=== PATIENT | female | born 1940 | race Caucasian/White ===

== ENCOUNTER → 2016-12-22 | Outpatient (CLI) | payer OTHER | LOC: FIMAGING 09:18 | PROVIDERS: ATTEND Family Medicine | DX: Z13.820 Encounter for screening for osteoporosis (principal); M85.80 Other specified disorders of bone density and structure, unspecified site; Z78.0 Asymptomatic menopausal state; E07.9 Disorder of thyroid, unspecified ==

== ENCOUNTER → 2017-01-10 | Outpatient (CLI) | payer OTHER | LOC: FIMAGING 09:01 | DX: Z12.31 Encounter for screening mammogram for malignant neoplasm of breast (principal) | CPT/HCPCS: G0202 ==

== ENCOUNTER → 2017-01-21 | Outpatient (CLI) | payer OTHER | LOC: FIMAGING 14:02 | PROVIDERS: ATTEND Family Medicine | DX: Z12.39 Encounter for other screening for malignant neoplasm of breast (principal); R92.2 Inconclusive mammogram | CPT/HCPCS: 76641; G0206 ==

== ENCOUNTER 2017-03-22 05:41 | Inpatient (IN) | payer OTHER ==
[2017-03-22] MEDS ORDERED: POVIDONE-IODINE 20 ML in SODIUM CL IRRIG SOLUTION 500 ML IRR ONE (06:00)
[2017-03-22] MEDS ORDERED: TRANEXAMIC ACID 1,500 MG in NS 100 ML IV ONE (06:00)
[2017-03-22] MEDS ORDERED: ROPIVACAINE 0.2% 80 MG, EPINEPHrine 0.2 MG, KETOROLAC TROMETHAMINE 30 MG in BAG 0 ML IU ONE (06:00)
[2017-03-22] MEDS ORDERED: DEXAMETHASONE 4 MG/ML VIAL IVP ONE (06:03)
[2017-03-22] MEDS ORDERED: FAMOTIDINE 20 MG TAB PO ONE (06:03)
[2017-03-22] MEDS ORDERED: ACETAMINOPHEN 325 MG TAB PO ONE (06:03)
[2017-03-22] MEDS ORDERED: ceFAZolin 2 GM/DEXTROSE 100 ML IV ONE (06:03)
[2017-03-22] MEDS ORDERED: LIDOCAINE 1% 2 ML INJ ID PRN (06:05)
[2017-03-22] MEDS ORDERED: LR 1,000 ML IV ONE (06:05)
[2017-03-22] MEDS ORDERED: LIDOCAINE 1% 2 ML INJ ONE (06:17)
[2017-03-22] MEDS ORDERED: ceFAZolin 1 GM/5 ML SYR ONE (06:39)
[2017-03-22] MEDS ORDERED: MIDAZOLAM 2 MG/2 ML VIAL IVP ONE (06:53)
--- NOTE | 2017-03-22 06:54 | PDHPUP ---
History & Physical Update H&P update statement: This history and physical update is based on an assessment of the patient which was completed after admission or registration (within 24 hours), but prior to the surgery/procedure. H&P update: H&P reviewed & patient examined, no change in patient's condition since H&P completed
[2017-03-22] MEDS ORDERED: fentaNYL 100 MCG/2 ML INJ ONE (07:11)
[2017-03-22] MEDS ORDERED: PROPOFOL/EMULSION 500 MG/50 ML BOTTLE IV ONE (07:11)
[2017-03-22] MEDS ORDERED: LIDOCAINE 2% 5 ML SDV ONE ×2 (07:12)
[2017-03-22] MEDS ORDERED: epHEDrine SULFATE 10 MG/ML SYR ONE ×3 (07:39→07:54)
[2017-03-22] MEDS ORDERED: PHENYLEPHRINE HCL 100 MCG/ML SYR ONE (07:53)
[2017-03-22] MEDS ORDERED: ONDANSETRON 4 MG/2 ML VIAL IVP PRN ×2 (08:02→08:58)
[2017-03-22] MEDS ORDERED: HYDROCODONE/APAP 5/325 TAB PO PRN (08:02)
[2017-03-22] MEDS ORDERED: OXYCODONE/APAP 5/325 TAB PO PRN (08:02)
[2017-03-22] MEDS ORDERED: D5W LR 500 ML IV PRN (08:02)
[2017-03-22] MEDS ORDERED: NALOXONE HCL 0.4 MG/ML INJ IVP PRN (08:02)
[2017-03-22] MEDS ORDERED: ACETAMINOPHEN 500 MG TAB PO PRN (08:02)
--- NOTE | 2017-03-22 08:02 | PDANEPAE ---
ANE Past Medical History - Cardiovascular History Hx Hypertension: No Hx Arrhythmias: No Hx Chest Pain: No Hx Coronary Artery / Peripheral Vascular Disease: No Hx CHF / Valvular Disease: No Hx Palpitations: No Cardiovascular History Comment: on Lipitor - Pulmonary History Hx COPD: No Hx Asthma/Reactive Airway Disease: No Hx Recent Upper Respiratory Infection: No Hx Oxygen in Use at Home: No Hx Sleep Apnea: No Sleep Apnea Screening Result - Last Documented: Negative - Neurologic History Hx Cerebrovascular Accident: No Hx Seizures: No Hx Dementia: No Neurologic History Comment: occ H/A's-migraines - Endocrine History Hx Diabetes: No Hypothyroid: Yes Hyperthyroid: No Obesity: no Endocrine History Comment: hypothyroid - Renal History Hx Renal Disorders: No - Liver History Hx Hepatic Disorders: No - Neurological & Psychiatric Hx Hx Neurological and Psychiatric Disorders: No - Cancer History Hx Cancer: Yes Cancer History Comment: Moh's surgery-basal skin CA - Congenital Disorder History Hx Congenital Disorders: No - GI History Hx Gastrointestinal Disorders: No - Other Health History Other Health History: OA L hip - Chronic Pain History Chronic Pain: Yes (L hip) - Surgical History Prior Surgeries: appy-child. hysterectomy, vag prolapse. 17 yrs ago,. bilat cataract extraction w/IOL 2015 ANE Review of Systems - Exercise capacity METS (RN): 4 METS ANE Patient History - Allergies Allergies/Adverse Reactions: No Known Allergies Allergy (Verified 03/11/17 10:57) - Home Medications Home Medications: Calcium Carbonate/Vitamin D3 [Calcium 600 + D3 Softgel] 1 each PO DAILY [Last Taken 03/18/17] Cholecalciferol Vit D3 [Vitamin D3 (*)] 4,000 units PO DAILY 03/08/17 [Last Taken 03/18/17] Ibuprofen [Motrin (*)] 400 mg PO DAILY PRN 03/08/17 [Last Taken 03/18/17] Levothyroxine [Synthroid 88 mcg (*)] 88 mcg PO DAILY06 03/08/17 [Last Taken ] Polyvinyl Alcohol/Povidone/Pf [Refresh Classic Eye Drops] 1 each OP DAILY PRN [Last Taken 03/22/17] Simvastatin [Zocor] 20 mg PO DAILY 03/08/17 [Last Taken 03/21/17] - NPO status NPO Since - Liquids (Date): 03/21/17 NPO Since - Liquids (Time): 21:00 NPO Since - Solids (Date): 03/21/17 NPO Since - Solids (Time): 21:00 - Smoking Hx Smoking Status: Never smoked ANE Labs/Vital Signs - Vital Signs Blood Pressure: 136/77 Heart Rate: 67 Respiratory Rate: 18 Height: 165.1 cm Weight: 74.843 kg ANE Physical Exam - Airway Neck exam: FROM Mallampati Score: Class 2 Mouth exam: normal dental/mouth exam - Pulmonary Pulmonary: no respiratory distress, no rales or rhonchi, clear to auscultation - Cardiovascular Cardiovascular: regular rate and rhythym - ASA Status ASA Status: II ANE Anesthesia Plan Anesthesia Plan: MAC, spinal
--- NOTE | 2017-03-22 08:49 | POSTOPPROG ---
Post Op Note Date of Operation: 03/22/17 Surgeon: Tigre Escobar Recovery Operator Helper: Robert Santiago/Oren Anesthesiologist: Juanito York Anesthesia: IV Sedation, Spinal Post-op Diagnosis: Left hip arthritis Procedure: Left total hip arthroplasty Inf/Abcess present in the surg proc area at time of surgery?: No EBL: 100-500
[2017-03-22] MEDS ORDERED: TEMAZEPAM 15 MG CAP PO PRN (08:58)
[2017-03-22] MEDS ORDERED: PROMETHAZINE HCL 25 MG SUPPR PR PRN (08:58)
[2017-03-22] MEDS ORDERED: CYCLOBENZAPRINE 10 MG TAB PO PRN (08:58)
[2017-03-22] MEDS ORDERED: LACTULOSE 20 GM/30 ML UDCUP PO PRN (08:58)
[2017-03-22] MEDS ORDERED: NON-FORMULARY NEW DRUG (Polyvinyl Alcohol/Povidone/Pf [Refresh Classic Eye Drops] 1 EACH) OP PRN (08:58)
[2017-03-22] MEDS ORDERED: traMADol 50 MG TAB PO PRN (08:58)
[2017-03-22] MEDS ORDERED: ONDANSETRON DISINTEGRATING 4 MG TAB PO PRN (08:58)
[2017-03-22] MEDS ORDERED: BISACODYL 10 MG SUPP PR PRN (08:58)
[2017-03-22] MEDS ORDERED: METOCLOPRAMIDE 10 MG/2 ML VIAL IVP PRN (08:58)
[2017-03-22] MEDS ORDERED: PHARMACY PAIN CONSULT 1 EA MISC PRN (08:58)
[2017-03-22] MEDS ORDERED: MAGNESIUM HYDROXIDE 30 ML UDCUP PO PRN (08:58)
[2017-03-22] MEDS ORDERED: POLYETHYLENE GLYCOL 3350 17 GM PKT PO PRN (08:58)
[2017-03-22] MEDS ORDERED: diphenhydrAMINE 25 MG CAP PO PRN (08:58)
[2017-03-22] MEDS ORDERED: NS 500 ML IV PRN (08:58)
[2017-03-22] MEDS ORDERED: DIPHENOXYLATE/ATROPINE LOMOTIL 1 TAB PO PRN (08:58)
[2017-03-22] MEDS ORDERED: PROMETHAZINE HCL 25 MG/ML INJ IVP PRN (08:58)
[2017-03-22] MEDS ORDERED: NON-FORMULARY NEW DRUG (Simvastatin [Zocor] 20 MG) PO SCH (09:00)
[2017-03-22] MEDS ORDERED: CARBOXYMETHYLCELLULOSE 1% 0.4 ML DROPERETTE EACHEYE PRN (09:16)
--- NOTE | 2017-03-22 10:17 | GOP ---
[f rep st] OPERATIVE REPORT DATE OF OPERATION: 03/22/2017 SURGEON: Tigre Escobar MD OIL TANK CAR CLEANER: Robert Santiago and Mark Lott. ANESTHESIA: A combination of Marcaine, spinal, and IV sedation. ANESTHESIOLOGIST: Dr. Juanito York. PREOPERATIVE DIAGNOSIS: Left hip arthritis. POSTOPERATIVE DIAGNOSIS: Left hip arthritis. PROCEDURE PERFORMED: Left total hip arthroplasty, ceramic femoral head on highly cross-linked polye thylene cup liner. FINDINGS: DESCRIPTION OF PROCEDURE: The patient was given 2 g of IV Ancef preoperatively within 60 minutes of surgery. She also received IV tranexamic acid at a dose of 20 mg/kg. She was placed on the operat ing room table and given spinal anesthesia with Marcaine by Dr. York. She was then placed merino pine and given IV sedation. A Ramon catheter was not used. She wore a stocking and SCD on the nono perative leg. She was rolled to the right lateral decubitus position. The position was secured wit h the pegboard table attachment. An axillary roll was used and all pressure points were carefully p added. I was careful to lock her pelvis in a rigid vertical position. Her perineum was isolated wi plastic adhesive drapes. The left hip and left lower extremity were prepped with ChloraPrep. Th ey were draped free using sterile sheets, stockinette, and Ioban plastic drapes. The [facility] rganization time-out was performed to verify the correct surgical side and site and the correct javier ent identity. The [place] time-out was also performed. I made a 5-inch straight oblique posterolateral hip skin incision. Subcutaneous tissues were sharpl y divided, and hemostasis was obtained using electrocautery. Her fascia romy was identified and spl it along the axis of its fibers. I then curved posteriorly and proximally, and split the fascia of gluteus meli and bluntly split the muscle fibers in line with their orientation. A Charnley self -retaining retractor was inserted. Her sciatic nerve was located, partially exposed, and protected throughout the procedure. The external rotators and the posterior hip capsule were divided as separ ate layers at the base of the femoral neck, tagged, and reflected posteriorly. A smooth 8-inch Stei nmann pin was inserted vertically into the ilium superior to the acetabulum. A 1/8-inch drill bit w as inserted vertically into the greater trochanter and parallel to the first pin. The distance betw een the 2 was measured for leg length reference. Her femoral head was dislocated posteriorly. The femoral neck was osteotomized at the appropriate level and inclination. I was careful to preserve a ll the posterior and anterior capsule. The remnant of her damaged labrum was excised. The femur was prepared first. This allowed me to pole peeler the amount of natural femoral neck anteversi on. This, in turn, allowed me to later determine the correct amount of cup anteversion. She had 12 -15 degrees of natural femoral neck anteversion. The canal was open first laterally with a box chis el. I then hand broached sequentially up to a size 5. I was using the Accolade II stem. The size 5 broach was used as a trial stem. I was careful to lateralize adequately. Appropriate retractors were inserted to expose the acetabulum. The acetabulum was reamed sequentially up to 51 mm. I benny cted a 52 mm [place] Tritanium cluster hole hemispherical shell. This was tapped securely into plac e in the proper degree of inclination and anteversion. I used the transverse acetabular ligament an d other acetabular bony landmarks to help me properly orient the cup. For additional fixation, I in serted a single 30 mm screw. I also inserted a screw in metal dome hole plug. I performed a series of trial reductions to determine length and stability. I concluded that the si ze 5 high offset stem with a 0 neck length and a 32 mm head with a flush trial liner gave me the pro per combination of appropriate length and good anterior and posterior stability. The 0 degree or fl [facility] Jian X3 highly cross-linked polyethylene liner was inserted and tapped securely into place. I selected the Accolade II stem with high offset at 127 degrees. This was inserted press-fit and wa s very tight. I did one final trial reduction and confirmed that the 0 neck length with a 32 mm hea d was the proper combination. The Jian Biolox Delta ceramic head with an outside diameter of 32 mm and a neck length of 0 mm was tapped securely onto the clean trunnion. The acetabulum was irriga darin and the hip was reduced one final time. She had excellent anterior and posterior stability. 40 mL of the joint anesthetic cocktail were injected into the capsule, the deep musculature, and the subcutaneous tissues around the skin edges. The joint was thoroughly irrigated one final time with a dilute Betadine solution. Her sciatic nerve was reinspected and looked unharmed. The external r otators and the posterior hip capsule were repaired in separate layers with #2 FiberWire sutures thr ough drill holes in the greater trochanter. The fascia romy was closed first with one bxcblj-ur-mwd ht #2 FiberWire suture followed by a running #2 barbed Ethicon Stratafix PDO suture. The subcutaneo us tissues were closed with a running 0 barbed Ethicon Stratafix Monoderm suture. The skin was clos ed with a running 3-0 barbed Ethicon Stratafix Monoderm subcuticular suture. The skin edges were re approximated and sealed with Dermabond glue. The wound was covered with a strip of Telfa and everyt phillip was held in place with a piece of clear plastic Tegaderm. A long-leg DARIN stocking and SCD were applied to her left lower extremity. She wore a stocking and SCD on the opposite leg during the pr ocedure. An abduction pillow was placed between her knees. She was awakened from anesthesia and ro lled to the supine position on her [facility]. She was taken to the PACU in satisfactory condi tion. There were no recognized intraoperative complications. The estimated blood loss was about 30 0 mL. The sponge and needle count were correct on 2 occasions. I used a [place] Tritanium hemispherical cluster hole acetabular shell with an outside diameter of 5 2 mm. The liner was a [place] X3 flush highly cross-linked liner with an inside diameter of 32 mm. The femoral component was a high offset [place] Accolade II stem in size 5 and press-fit. The femo ral head was a [place] Biolox Delta ceramic head with a 0 neck length and a 32 mm outside diameter. Robert Santiago and Mark Lott acted as surgical assistants. Their assistance was a medical nelli pisano for safe completion of the procedure. /[id number]/MODL
--- NOTE | 2017-03-22 10:22 | POSTANESTH ---
Post Anesthetic Evaluation Cardiovascular Status: Normal, Stable Respiratory Status: Normal, Stable Level of Consciousness/Mental Status: Can Participate in Eval Pain Control: Adequate, Prn Tx Ordered Nausea/Vomiting Control: Adequate, Prn Tx Ordered
[2017-03-22] MEDS: ATORVASTATIN CALCIUM 10 MG TAB PO SCH (11:19)
[2017-03-22] MEDS: FERROUS SULFATE 140 MG TAB.ER PO SCH (11:19)
[2017-03-22] MEDS: SENNOSIDES/DOCUSATE SODIUM TAB PO SCH ×2 (11:20→20:31)
[2017-03-22] MEDS: ACETAMINOPHEN 325 MG TAB PO SCH ×2 (12:02→17:34)
[2017-03-22] MEDS: KETOROLAC 30 MG/1 ML SDV IVP PRN (12:05)
[2017-03-22] MEDS: LR 1,000 ML IV SCH ×2 (12:11→20:29)
[2017-03-22] MEDS: ceFAZolin 2 GM/DEXTROSE 100 ML IV SCH ×2 (15:00→20:31)
[2017-03-22] MEDS: oxyCODONE IR 5 MG TAB PO PRN (17:35)
[2017-03-22] MEDS: FAMOTIDINE 20 MG TAB PO SCH (20:31)
[2017-03-22] MEDS: ASPIRIN 325 MG TAB PO SCH (20:31)
[2017-03-22 23:55] VITALS: RESP 16
[2017-03-23] MEDS: ACETAMINOPHEN 325 MG TAB PO SCH ×2 (00:23→05:07)
[2017-03-23] MEDS: KETOROLAC 30 MG/1 ML SDV IVP PRN (00:23)
[2017-03-23] MEDS: oxyCODONE IR 5 MG TAB PO PRN ×2 (00:24→08:19)
[2017-03-23] MEDS ORDERED: LEVOTHYROXINE 88 MCG TAB PO SCH (06:00)
[2017-03-23 07:22] VITALS: BP 105/65; PULSE 61; TEMP 97.9; O2SAT 96
[2017-03-23] MEDS: ATORVASTATIN CALCIUM 10 MG TAB PO SCH (08:18)
[2017-03-23] MEDS: FAMOTIDINE 20 MG TAB PO SCH (08:20)
[2017-03-23] MEDS: FERROUS SULFATE 140 MG TAB.ER PO SCH (08:20)
[2017-03-23] MEDS: SENNOSIDES/DOCUSATE SODIUM TAB PO SCH (08:20)
[2017-03-23] MEDS: ASPIRIN 325 MG TAB PO SCH (08:20)
--- NOTE | 2017-03-23 09:42 | PDIAF ---
- Diagnosis Diagnosis: left hip OA Code Status: Full Code - Medication Management Discharge Medications: Medications to Continue on Transfer Calcium Carbonate/Vitamin D3 [Calcium 600 + Vit D 400 Softgl] 1 each PO DAILY [Last Taken 03/18/17] Cholecalciferol Vit D3 [Vitamin D3 (*)] 4,000 units PO DAILY 03/08/17 [Last Taken 03/18/17] Ibuprofen [Motrin (*)] 400 mg PO DAILY PRN 03/08/17 [Last Taken 03/18/17] Levothyroxine [Synthroid 88 mcg (*)] 88 mcg PO DAILY06 03/08/17 [Last Taken ] Polyvinyl Alcohol/Povidone/Pf [Refresh Classic Eye Drops] 1 each OP DAILY PRN [Last Taken 03/22/17] Simvastatin [Zocor] 20 mg PO DAILY 03/08/17 [Last Taken 03/21/17] Acetaminophen [Tylenol 325mg (*)] 650 mg PO Q6HRS #0 tab 03/23/17 [Last Taken Unknown] Aspirin [Aspirin 325 mg (*)] 325 mg PO DAILY #21 tab 03/23/17 [Last Taken Unknown] Ferrous Sulfate [Slow Fe 140 MG (*)] 140 mg PO DAILY #30 tab.er 03/23/17 [Last Taken Unknown] Ondansetron Odt [Zofran Odt 4 mg (*)] 4 mg PO Q4HRS PRN #0 tab 03/23/17 [Last Taken Unknown] oxyCODONE IR [Oxycodone Ir (*)] 5 - 10 mg PO Q3HRS PRN #0 tab 03/23/17 [Last Taken Unknown] traMADol [Ultram 50 mg (*)] 50 mg PO Q6HRS PRN #0 tab 03/23/17 [Last Taken Unknown] Discharge Medications: Refer to the Discharge Home Medication list for PRN reason. PICC Care - Routine: N/A - Orders Services needed: Home Care, Physical Therapy Home Care Face to Face: I certify that this patient was under my care and that I had the required gyid-sw-miyo encounter meeting the encounter requirements on the discharge day. My findings support the fact that the patient is homebound as defined in CMS Chapter 7 Medicare Benefits Manual 30.1.1, The condition of the patient is such that there exists a normal inability to leave home and consequently, leaving home would require a considerable and taxing effort. Diet Recommendation: no restrictions on diet Diet Texture: Regular Texture Diet Ramon: Not applicable Chirss Stockings Discontinue Date: 1 week Wound Care Instructions: keep clean and dry. You may shower. Activity/Weight Bearing Restrictions: as tolerated. - Follow Up Care Current Providers and Referrals: Yessi Price MD [Primary Care Provider] - Tigre Escobar MD [Medical Doctor] - 04/11/17
--- NOTE | 2017-03-23 09:47 | SOAPPROG ---
SOAP Progress Note Assessment/Plan: Assessment: Afebrile. Awake and alert. Moderate pain. Her sciatic nerve is intact. Her dressing is dry. H&H is good. Postop films look excellent. Plan: Up with physical therapy today. Discharge later today. 03/23/17 09:46 Objective: Vital Signs Temp Pulse Resp BP Pulse Ox 36.6 C 61 16 105/65 96 03/23/17 07:20 03/23/17 07:20 03/23/17 07:20 03/23/17 07:20 03/23/17 07:20 Laboratory Results 03/23/17 04:59 03/22/17 03/23/17 03/24/17 05:59 05:59 05:59 Intake Total 1330 Output Total 6955 Balance -545 ICD10 Worksheet Patient Problems: Problems Problem Status Onset Osteoarthritis of left hip Acute
--- NOTE | 2017-03-23 15:17 | GDS ---
[f rep st] DISCHARGE SUMMARY ADMITTING DIAGNOSES: Left hip severe degenerative arthritis. DISCHARGE DIAGNOSIS: Left hip severe degenerative arthritis. OPERATIONS PERFORMED: On 03/22/2017, a left total hip arthroplasty. POSTOP COMPLICATIONS: None. CONDITION ON DISCHARGE: Improved. DESCRIPTION OF HOSPITAL COURSE: The patient was admitted to the hospital on the morning of surgery. Her admission CBC was normal. The same day, under a combination of Marcaine, spinal, and IV sedat ion, she underwent a left total hip arthroplasty. Postoperatively, she was treated with multimodal DVT prophylaxis, including aspirin. On the first postoperative day, her hemoglobin and hematocrit were 12.0 and 37.0. She was seen by hysical Therapy and made good progress with ambulation and stairs. By the time of discharge, she was afebrile, her wound was clean and dry, and she was independent [facility]. DISPOSITION: The patient discharged to her home. DISCHARGE INSTRUCTIONS: She will have a couple of home physical therapy visits and then go to [facility] after that. Use DARIN stockings for 1 week. Use an abduction pillow in bed for 3 weeks. Alesha luciae aspirin 325 mg p.o. daily for 21 days. She has prescriptions for oxycodone and tramadol for krzysztof n control. Use an abduction pillow in bed for 3 weeks. If there are any problems, she is to call edwin leach at the office. I will see her back in the office on April 11, 2017. /[id number]/MODL
== END 2017-03-23 11:26 | disposition home health service (06) | DRG 470 ==
LOC: F3N 05:41
PROVIDERS: ADMIT Orthopaedic Surgery; ATTEND Orthopaedic Surgery
PROC: 0SRB04Z Replacement of Left Hip Joint with Ceramic on Polyethylene Synthetic Substitute, Open Approach (ICD-10-PCS; principal; 2017-03-22 07:15)
DX: M16.12 Unilateral primary osteoarthritis, left hip (principal); E03.9 Hypothyroidism, unspecified; E78.00 Pure hypercholesterolemia, unspecified; G43.909 Migraine, unspecified, not intractable, without status migrainosus
CPT/HCPCS: 97116-GP; 97161-GP; 97166-GO; 97530-GP; C1713; G8978-GP-CJ; G8979-GP-CI; G8980-GP-CI; G8987-GO-CI; G8988-GO-CI; G8989-GO-CI; J0171; J0690; J1100; J1885; J2250; J2370; J2704; J2795; J3010

== ENCOUNTER → 2018-02-03 | Outpatient (CLI) | payer OTHER | LOC: FIMAGING 12:19 | PROVIDERS: ATTEND Family Medicine | DX: Z12.31 Encounter for screening mammogram for malignant neoplasm of breast (principal) ==